=== PATIENT | female | born 1940 | race Caucasian/White ===

== ENCOUNTER 2016-08-27 12:54 | Day surgery (SDC) | payer MEDICARE, OTHER ==
--- NOTE | ~2016-08-27 | EGD ---
EGD REPORT [facility] [address] [place] [address] NAME: MONICA NAYLOR : [birth year] STATUS : REG [facility]#: [id number] AGE: 76 ADM/REG DATE : 08/27/16 MR#: [id number] REPORT SERV DATE: 08/27/16 DICTATED BY: DAWOOD HOOKS DATE: 08/27/16 REPORT STATUS : Draft TRANSCRIBED BY: [facility] DATE: 08/27/16 [facility] Center Patient Name: Monica Naylor Date of : 1940 Attending MD: CLARENCE HOOKS MD Procedure Date No Time: 08/27/2016 Procedure: Colonoscopy Indications: High risk colon cancer surveillance: Personal history of colonic polyps, Last colonoscopy: July 2013 Referring MD: MILLICENT WHITE Medicines: See the Anesthesia note for documentation of the administered medications Complications: No immediate complications. Estimated blood loss: None. Procedure: Pre-Anesthesia Assessment: - ASA Grade Assessment: III - A patient with severe systemic disease. - Prior to the procedure, a History and Physical was performed, and patient medications and allergies were reviewed. The patient's tolerance of previous anesthesia was also reviewed. The risks and benefits of the procedure and the sedation options and risks were discussed with the patient. All questions were answered, and informed consent was obtained. Prior Anticoagulants: The patient has taken aspirin, last dose was 1 day prior to procedure. After reviewing the risks and benefits, the patient was deemed in satisfactory condition to undergo the procedure. After I obtained informed consent, the scope was passed under direct vision. Throughout the procedure, the patient's blood pressure, pulse, and oxygen saturations were monitored continuously. The PCF [id number] was introduced through the anus and advanced to the cecum, identified by appendiceal orifice and ileocecal valve. The ileocecal valve, appendiceal orifice and rectum were photographed. The entire colon was examined. The colonoscopy was performed without difficulty. The patient tolerated the procedure well. The quality of the bowel preparation was adequate. Findings: The perianal and digital rectal examinations were normal. Multiple medium-mouthed diverticula were found in the sigmoid colon and in the descending colon. Non-bleeding internal hemorrhoids were found during retroflexion and were Grade I (internal hemorrhoids that do not prolapse). EGD REPORT [place] [id number] [facility] [place]. [address] NAME: MONICA NAYLOR : [birth year] STATUS : REG [facility]#: [id number] AGE: 76 ADM/REG DATE : 08/27/16 MR#: [id number] REPORT SERV DATE: 08/27/16 DICTATED BY: DAWOOD HOOKS DATE: 08/27/16 REPORT STATUS : Draft TRANSCRIBED BY: [employer] DATE: 08/27/16 No other significant abnormalities were identified in a careful examination of the remainder of the colon. Impression: - Diverticulosis in the sigmoid colon and in the descending colon. - Non-bleeding internal hemorrhoids. Recommendation: - Patient has a contact number available for emergencies. The signs and symptoms of potential delayed complications were discussed with the patient. Return to normal activities tomorrow. Written discharge instructions were provided to the patient. - High fiber diet indefinitely. - Discharge patient to home. - Continue present medications. - Repeat colonoscopy is not recommended for surveillance. Procedure Code(s): --- Professional --- 95011, Colonoscopy, flexible, proximal to splenic flexure; diagnostic, with or without collection of specimen(s) by brushing or washing, with or without colon decompression (separate procedure) Diagnosis Code(s): --- Professional --- K64.0, First degree hemorrhoids K57.30, Diverticulosis of large intestine without perforation or abscess without bleeding Z86.010, Personal history of colonic polyps CPT copyright 2013 [employer]. All rights reserved. The codes documented in this report are preliminary and upon nonfarm animal caretaker review may be revised to meet current compliance requirements. CLARENCE HOOKS MD 08/27/2016 2:41 PM This report has been signed electronically. Number of Addenda: 0 Note Initiated On: 08/27/2016 2:15 PM Scope Withdrawal Time 0 hours 8 minutes 38 seconds [id number] [id number]
[~2016-08-27 12:54] MED LIST: ASAB PO; CAT1 PO; ESTROPIPATE1.5 MG PO; FISH-EPA1000 MG PO; MULTI-VIT HP PO; PROBIOTIC
== END 2016-08-27 23:59 | disposition home or self-care (01) ==
LOC: DMU 12:54
PROVIDERS: Internal Medicine Gastroenterology
PROC: 0DJD8ZZ Inspection of Lower Intestinal Tract, Via Natural or Artificial Opening Endoscopic (ICD-10-PCS; principal; 2016-08-27 14:30)
DX: Z12.11 Encounter for screening for malignant neoplasm of colon (principal); K64.0 First degree hemorrhoids; K57.30 Diverticulosis of large intestine without perforation or abscess without bleeding; I10 Essential (primary) hypertension; Z86.010 Personal history of colon polyps; Z95.0 Presence of cardiac pacemaker; Z98.41 Cataract extraction status, right eye; Z98.42 Cataract extraction status, left eye